=== PATIENT | female | born 1970 | race Asian ===

== ENCOUNTER 2017-09-08 19:08 | Emergency (ER) | payer OTHER ==
[2017-09-08 19:52] VITALS: BP 107/71
--- NOTE | 2017-09-08 20:19 | UC ---
Abdominal Pain Female HPI - HPI Summary HPI Summary: 47 y/o female presents to the urgent care accompany by who translates c/o RLQ abdominal pain since Saturday. Pt reports pain is 6/10, dull radiating to the Rt lower back and w/ mild nausea and chills. Pt had 2 episodes of diarrhea Saturday. Pt ate normal breakfast and lunch today. She did a normal bowel movement. reports Pt had an US done in [place] 3 months ago and was told Pt had mild appendicitis. LMP: 08/26/2017 w/ regular menstrual cycles. Pt denies fever, SOB, chest pain, , vomiting, blood in the stool, urinary symptoms. Pt has not taking anything to alleviate symptoms. - History of Current Complaint Chief Complaint: UCAbdominalPain Stated Complaint: ABD PAIN Time Seen by Provider: 09/08/17 20:07 Hx Obtained From: Patient Hx Last Menstrual Period: 08/26/17 Onset/Duration: Gradual Onset, Lasting Days - 3 days, Still Present, Worse Since - today Timing: Constant Severity Initially: Mild Severity Currently: Moderate Pain Intensity: 6 Pain Scale Used: 0-10 Numeric Location: Discrete At: RLQ Radiates: Yes Radiates to: Back - RT lower back Character: Aching, Dull Aggravating Factor(s): Movement Alleviating Factor(s): Nothing Associated Signs and Symptoms: Negative: Fever, Cough, Chest Pain, Constipation , Blood in Stool Allergies/Adverse Reactions: Allergies Allergy/AdvReac Type Severity Reaction Status Date / Time No Known Allergies Allergy Verified 09/08/17 19:37 Home Medications: Home Medications Amoxicillin PO (*) [Amoxicillin 875 MG (*)] 875 mg PO BID 09/08/17 [History Confirmed 09/08/17] PMH/Surg Hx/FS Hx/Imm Hx Previously Healthy: Yes - Pt denies PMHX - Surgical History Surgical History: Yes Surgery Procedure, Year, and Place: cholecystectomy 2014 - Family History Known Family History: Positive: Diabetes - Social History Occupation: Employed Full-time Lives: With Family Alcohol Use: Rare Substance Use Type: None Smoking Status (MU): Never Smoked Tobacco Review of Systems Constitutional: Chills Skin: Negative Eyes: Negative ENT: Negative Respiratory: Negative Cardiovascular: Negative Gastrointestinal: Abdominal Pain - RLQ, Diarrhea, Nausea Genitourinary: Negative Motor: Negative Neurovascular: Negative Musculoskeletal: Negative Neurological: Negative Psychological: Negative Is Patient Immunocompromised?: No All Other Systems Reviewed And Are Negative: Yes Physical Exam - Summary Physical Exam Summary: Vital Signs Reviewed: Yes General:Patient is a well developed and nourished female who is sitting comfortable in the examining table. Patient is not in any acute respiratory distress. Eyes: Positive: Conjunctiva Clear - PERRLA, EOMI, fundi grossly normal ENT: Positive: Normal ENT inspection, Hearing grossly normal, Pharynx normal, TMs normal Neck: Positive: Supple, Nontender, No Lymphadenopathy Respiratory: Positive: Chest non-tender, Lungs clear, Normal breath sounds, No respiratory distress Cardiovascular: Positive: RRR,S1 and S2 present, No Murmur, Pulses Normal, Brisk Capillary Refill Abdomen Description: Positive: Abd: Flat with no distention. No surface trauma , scars, incisions. hyperactive bowel sounds present in all four quadrants. Point tenderness over the RLQ, no guarding, no rigidity to palpation. No masses palpated, no pulsation in epigastric area. No organomegaly. Negative Lilly signs. No periumbilical tenderness. No rebound in the lower quadrants. Tenderness over McBurneys point. Good femoral pulses bilaterally. No hernia noted. No CVAT bilaterally Musculoskeletal: Positive: Strength Intact, ROM Intact, No Edema,FROM in all major joints, no edema, no cyanosis or clubbing. Neuro: Alert and oriented x 3. No acute neurological deficits. Speech is normal. Psychological: WNL Skin: Dry and warm Triage Information Reviewed: Yes Vital Signs: Initial Vital Signs Temp 99.6 F 09/08/17 19:40 Pulse 73 09/08/17 19:40 Resp 16 09/08/17 19:40 BP 107/71 09/08/17 19:40 Pulse Ox 100 09/08/17 19:40 Abd Pain Female Course/Dx - Course Course Of Treatment: 47 y/o female presents to the urgent care accompany by who translates c/o RLQ abdominal pain since Saturday. Pt reports pain is 6/10, dull radiating to the Rt lower back and w/ mild nausea and chills. Pt had 2 episodes of diarrhea Surendra. Pt ate normal breakfast and lunch today. She did a normal bowel movement. reports Pt had an US done in [place] 3 months ago and was told Pt had mild appendicitis. LMP: 08/26/2017 w/ regular menstrual cycles. Pt denies fever, SOB, chest pain, , vomiting, blood in the stool, urinary symptoms. Pt has not taking anything to alleviate symptoms.Hx Obtained. Pt w/ tenderness over the RLQ and Positive Mcburney's point w/ normal Bowel sounds, no guarding or distension on examination. Pt's symptoms discussed w/ DR Canales since I think Pt should go to the ER for further work-up. She evaluated Pt and she agreed Pt should go immediately to the ER to r/o appendicitis, or other abnormal etilogy. PT and strongly advised to go to the ER and recommended ambulance transfer. declined transfer and states he will take his by privated car. He was explained the risks of not going to the ER. Pt and agreed w/ plan of care. Pt left the clinic ambulating and hemodynamycally stable, A&OX3. - Differential Dx/Diagnosis Differential Diagnosis: Appendicitis, Constipation, Ectopic , Ovarian Cyst, Pelvic Inflammatory Disease, Urinary Tract Infection Provider Diagnoses: 1-Acute RLQ abdominal pain. 2-Nausea Discharge - Discharge Plan Condition: Stable Disposition: OTHER Discharge Disposition Comment: I strongly advised you to go immediately to the ER for further evaluation, Patient Education Materials: Acute Abdominal Pain (ED) Referrals: Edelmira Oseguera MD [Primary Care Provider] - Additional Instructions: I think you need a higher level or care for your presenting symptoms. I highly recommend you to go to the ER for further evaluation and treatment. The risks of not going can be , sepsis, appendicitis, or any other abdominal etiology.
== END 2017-09-08 20:50 ==
LOC: UCEAST 19:08
DX: R10.31 Right lower quadrant pain (principal); R11.0 Nausea; R68.83 Chills (without fever); R19.7 Diarrhea, unspecified; Z90.49 Acquired absence of other specified parts of digestive tract
CPT/HCPCS: 99212; G0463

== ENCOUNTER 2017-09-08 21:08 | Emergency (ER) | payer OTHER ==
[2017-09-08] MEDS ORDERED: Ondansetron INJ* 2 MG/ML VIAL IV ONE (21:53)
[2017-09-08] MEDS ORDERED: NS 0.9% 1000 ML* 1,000 ML IV ONE (21:53)
[2017-09-08] MEDS ORDERED: Morphine INJ* 10 MG/ML 1 ML CARPUJECT IV ONE (21:53)
[2017-09-08 22:14] LABS: ABS Basophils 0 10^3/ul (0-0.2); ABS Eosinophils 0.3 10^3/ul (0-0.6); ABS Lymphocytes 1.9 10^3/ul (1.0-4.8); ABS Monocytes 0.4 10^3/ul (0-0.8); ABS Neutrophils 4.1 10^3/ul (1.5-7.7); ABS Nucleated RBC 0 10^3/ul; Eosinophil % 4.6 % (0-6); Hematocrit 38 % (35-47); Hemoglobin 12.9 g/dl (12.0-16.0); Lymphocyte % 28.1 % (25-47); Mean Corpuscular HGB Conc 34 g/dl (31-36); Mean Corpuscular Hemoglobin 31 pg (27-31); Mean Corpuscular Volume 91 fL (80-97); Mean Platelet Volume 8 um3 (7.4-10.4); Nucleated Red Blood Cells % 0.1; Platelet Count 227 10^3/ul (150-450); Red Blood Count 4.13 10^6/ul (4.0-5.4); Red Cell Distribution Width 13 % (10.5-15); White Blood Count 6.6 10^3/ul (3.5-10.8)
[2017-09-08 22:27] LABS: INR 0.93 (0.77-1.02)
[2017-09-08 22:31] LABS: EGFR Non-African American 86.8 (>60)
[2017-09-08 23:06] LABS: Urine Appearance Clear; Urine Blood Negative (Negative); Urine Color Straw; Urine Ketones Negative (Negative); Urine Protein Negative (Negative); Urine Specific Gravity 1.006 (1.010-1.030); Urine Urobilinogen Negative (Negative)
[2017-09-08] MEDS ORDERED: Ketorolac INJ* 30 MG/ML 1 ML VIAL IV PUSH ONE (23:28)
[2017-09-08] MEDS ORDERED: Ketorolac INJ* 30 MG/ML 1 ML VIAL ONE (23:29)
[2017-09-09] MEDS ORDERED: Iohexol 300* (CONTRAST) 10 ML SDV IV ONE (00:01)
[2017-09-09] MEDS ORDERED: Magnesium CITRATE* 300 ML BTL PO ONE (00:59)
[2017-09-09] MEDS ORDERED: Bisacodyl SUPP* 10 MG SUPP PR ONE (00:59)
[2017-09-09 01:51] VITALS: BP 94/58
--- NOTE | 2017-09-09 01:52 | ED ---
Darren Wilson Julia, scribed for Yan Morgan MD on 09/08/17 at 2148 . 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 Patient reports nausea and chills. Patient denies vomiting and fever. The patient rates the pain 6/10 in severity. 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 Negative: Fever, Vomiting Allergies/Adverse Reactions: Allergies Allergy/AdvReac Type Severity Reaction Status Date / Time No Known Allergies Allergy Verified 09/08/17 19:37 PMH/Surg Hx/FS Hx/Imm Hx Opthamlomology History: Denies: Hx Legally Blind EENT History: Denies: Hx Deafness - Surgical History Surgery Procedure, Year, and Place: cholecystectomy 2014 Infectious Disease History: No Infectious Disease History: Denies: Traveled Outside the [place] in Last 30 Days - Family History Known Family History: Positive: Diabetes - Social History Alcohol Use: Rare Substance Use Type: Reports: None Smoking Status (MU): Never Smoked Tobacco Review of Systems Positive: Chills. Negative: Fever Positive: Abdominal Pain, Nausea. Negative: Vomiting All Other Systems Reviewed And Are Negative: Yes Physical Exam - Summary Physical Exam Summary: VITAL SIGNS: Reviewed. GENERAL: Patient is a well-developed and nourished (MALE OR FEMALE) who is lying comfortable in the stretcher. Patient is not in any acute respiratory distress. HEAD AND FACE: No signs of trauma. No ecchymosis, hematomas or skull depressions. No sinus tenderness. EYES: PERRLA, EOMI x 2, No injected conjunctiva, no nystagmus. EARS: Hearing grossly intact. Ear canals and tympanic membranes are within normal limits. MOUTH: Oropharynx within normal limits. NECK: Supple, trachea is midline, no adenopathy, no JVD, no carotid bruit, no c- spine tenderness, neck with full ROM. CHEST: Symmetric, no tenderness at palpation LUNGS: Clear to auscultation bilaterally. No wheezing or crackles. CVS: Regular rate and rhythm, S1 and S2 present, no murmurs or gallops appreciated. ABDOMEN: Soft,with RLQ tenderness. No signs of distention. No rebound no guarding, and no masses palpated. Bowel sounds are normal. EXTREMITIES: FROM in all major joints, no edema, no cyanosis or clubbing. NEURO: Alert and oriented x 3. No acute neurological deficits. Speech is normal and follows commands. SKIN: Dry and warm Triage Information Reviewed: Yes Vital Signs On Initial Exam: Initial Vitals Temp Pulse Resp BP Pulse Ox 97.9 F 67 16 127/77 99 09/08/17 21:26 09/08/17 21:26 09/08/17 21:26 09/08/17 21:26 09/08/17 21:26 Vital Signs Reviewed: Yes Diagnostics - Vital Signs Vital Signs Temp Pulse Resp BP Pulse Ox 09/08/17 21:26 97.9 F 67 16 127/77 99 - Laboratory Result Diagrams: 09/08/17 22:05 09/08/17 22:05 Lab Statement: Any lab studies that have been ordered have been reviewed, and results considered in the medical decision making process. - CT A/P CT Interpretation Completed By: Radiologist - Probably involuting 2.6cm right ovarian cyst with smal amout of pelvic free fluid. Questionable mild gastritis may be further evaluated with endoscopy as clinically warranted. ED Physician has reviewed this report. Abdominal Pain Fem Course/Dx - Course Course Of Treatment: Patient presents with RLQ abdominal pain for the past three days. Lab results are unremarkable. A abdominal and pelvis CT reveals. Patient is given Zofran, Morphine, Magnesium, and IV fluids. A abdomen and pelvis CT reveals a 2.6 right ovarian cyst. - Diagnoses Provider Diagnoses: Constipation Discharge - Discharge Plan Condition: Stable Disposition: HOME Prescriptions: Ibuprofen TAB* [Motrin TAB* 600 MG] 600 mg PO Q6H PRN #30 tab PRN Reason: Pain Patient Education Materials: Ovarian Cyst (ED), Constipation (ED) Referrals: Edelmira Oseguera MD [Primary Care Provider] - If Needed Additional Instructions: RETURN TO THE EMERGENCY DEPARTMENT FOR CHANGING OR WORSENING SYMPTOMS. The documentation as recorded by the Darren muir Julia accurately reflects the service I personally performed and the decisions made by , Yan Morgan MD.
--- NOTE | 2017-09-09 07:57 | RAD ---
CLINICAL HISTORY: Abdominal pain COMPARISON: None TECHNIQUE: Multiple contiguous axial CT scans were obtained of the abdomen and pelvis after the administration of intravenous contrast. Coronal and sagittal multiplanar reformations are submitted for review. Oral contrast was administered. Delayed images were obtained through the abdomen and pelvis. FINDINGS: LUNG BASES: The lung bases are clear. LIVER: The liver is normal in shape, size, contour, and attenuation. BILE DUCTS: There is mild intrahepatic biliary dilatation. This extends to the confluence with the common hepatic duct. GALLBLADDER: The gallbladder is not visualized. Surgical clips are noted in the gallbladder fossa. PANCREAS: The pancreas is normal, without mass or ductal dilatation. SPLEEN: Normal in size and appearance. UPPER GI TRACT: Evaluation of the gastrointestinal tract is limited by incomplete gastric distention. There is mild mucosal thickening of the distal body and gastric antrum SMALL BOWEL AND MESENTERY: The small bowel is normal in contour, course, and caliber. There is no obstruction or dilatation. COLON: The colon is normal in contour, course, caliber. There is no pericolonic inflammatory change. ADRENALS: Normal bilaterally. KIDNEYS: The kidneys are normal in shape, size, contour, and axis. There is no hydronephrosis or nephrolithiasis. BLADDER: The bladder is collapsed and is not well evaluated. PELVIC ORGANS: There is a 2.3 cm right ovarian cyst. The pelvic organs otherwise unremarkable for patient age and technique. AORTA: The aorta is normal. IVC: Unremarkable LYMPH NODES: There is no lymphadenopathy by size criteria. ABDOMINAL WALL: There is no evidence for abdominal wall hernia. BONES AND SOFT TISSUES: There are mild diffuse degenerative changes. OTHER: None IMPRESSION: 1. INTRAHEPATIC PILLAR DILATATION. STATUS POST CHOLECYSTECTOMY. 2. RIGHT OVARIAN CYST. 3. MILD GASTRIC MUCOSAL THICKENING WHICH MAY BE AN ARTIFACT OF INCOMPLETE DISTENTION.
== END 2017-09-09 01:50 | disposition home or self-care (01) ==
LOC: ED 21:08
DX: K59.00 Constipation, unspecified (principal); R10.31 Right lower quadrant pain; R11.0 Nausea; N83.201 Unspecified ovarian cyst, right side
CPT/HCPCS: 36415; 74177; 80053; 81003; 82150; 83605; 83690; 83735; 84702; 85025; 85610; 85730; 86140; 96374; 96375; 99283; A9270-GY; J1885; J2270; J2405; Q9967